=== PATIENT | male | born 1975 ===

== ENCOUNTER → 2022-10-24 10:35 | Outpatient (CLI) | payer OTHER, SELFPAY ==
--- NOTE | ~2022-10-24 | MR_ITS ---
EXAMINATION: MR knee LT wo con DATE: 10/24/2022 11:22 INDICATION: Medial left knee pain. Fall. TECHNIQUE: Magnetic resonance imaging (MRI) of the left knee was performed without intravenous contra st. Sequences included axial PD-weighted FS FSE, coronal PD-weighted FSE and PD-weighted FS FSE, sagi ttal PD-weighted FSE, and sagittal T2-weighted FS FSE. COMPARISON: None. FINDINGS: Medial compartment: Medial meniscus is normal. There is deep cartilage fissuring of femoral condyle involving the central articular surface. Tibial cartilage is normal. Lateral compartment: Lateral meniscus is normal. Lateral compartment cartilage is normal. Patellofemoral compartment: There is deep cartilage fissuring of patellar medial facet inferiorly. There is deep partial thicknes s cartilage loss of medial trochlea with mild subchondral edema-like marrow signal intensity. There i s deep fissuring of cartilage of lateral trochlea with moderate subchondral edema-like marrow signal intensity and small subchondral cysts. Osteophytes are noted. Ligaments and tendons: The anterior and posterior cruciate ligaments are normal. There is a partial tear of medial collatera l ligament characterized by thickening and increased signal intensity and surrounding edema. Fluid: There is no knee joint effusion. There is edema in Hoffa's fat pad. There is a moderate-sized multilo culated Sousa's cyst. IMPRESSION: 1. Moderate chondrosis of patellofemoral compartment and medial compartment. 2. Moderate-sized multiloculated Sousa's cyst. 3. Grade 2 sprain of medial collateral ligament. Reviewed, dictated and finalized at location A.
== END ==
DX: M71.22 Synovial cyst of popliteal space [Baker], left knee (principal); S83.412A Sprain of medial collateral ligament of left knee, initial encounter; X58.XXXA Exposure to other specified factors, initial encounter
CPT/HCPCS: 73721